=== PATIENT | female | born 1960 | race Caucasian/White ===

== ENCOUNTER 2018-05-14 10:44 | Emergency (ER) | payer MEDICAID ==
[~2018-05-14] VITALS: Ht 167.6 cm; Wt 67.0 kg
[2018-05-14 10:48] VITALS: BP 134/76; PULSE 74; RESP 20; Ht 167.6 cm; Wt 67.0 kg
--- NOTE | 2018-05-14 11:57 | ERD ---
ER Documentation Chief Complaint Chief Complaint Sent from MD for eval rash possible to shingles HPI 58-year-old female sent here by PCP to evaluate for shingles. Patient states that her daughter has recently diagnosed with shingles. Patient had a recurrent facial rash that usually erupts with stress. She currently has a facial rash, and her PCP want her to be seen in the ER to rule out shingles. Patient states that her facial lesion hong. She has not been diagnosed or treated for her facial lesions. Denies fever or chills. Denies itching. Denies drainage from the lesions. Denies burning or pain elsewhere. Patient reports history of chickenpox early in life. ROS All systems reviewed and are negative except as per history of present illness. Allergies Allergies: Coded Allergies: No Known Allergy (Unverified , 05/14/18) PMhx/Soc History of Surgery: No Hx Miscellaneous Medical Probl: Yes (dm) Hx Alcohol Use: No Hx Substance Use: No Hx Tobacco Use: No Smoking Status: Never smoker Physical Exam Vitals Vital Signs Date Temp Pulse Resp B/P (MAP) Pulse Ox O2 O2 Flow FiO2 Time Delivery Rate 05/14/18 98.1 74 20 134/76 99 10:48 (95) Physical Exam General: Well-developed, well-nourished, conscious and coherent, in no distress Skin: Warm and dry, good texture and turgor. Head: Normocephalic without evidence of trauma Eyes: Sclera and conjunctivae normal; pupils equal, round, and reactive to light; extraocular movements are intact Nose/Face: Multiple discrete erythematous papules on patient's bilateral cheeks and nose. No vesicular lesions, lesions cross the midline. Chest: Normal AP diameter. Good expansion without retractions. Nontender. Lungs are clear to auscultate bilaterally with good tidal volume Heart: Regular rate and rhythm. No murmur, rub, or gallops heard Extremities: Full range of motion. Good strength bilaterally. No erythema, ecchymosis, or edema. Peripheral pulses are intact. Sensation intact Neuro: Alert and oriented 4, GCS 15. Procedures/MDM 58-year-old female sent here by PCP for evaluation of possible shingles. Patient does have a facial lesion, however it looks more like rosacea rather than shingles. Given patient's advanced age, I advised her to get herpes zoster vaccination to prevent future shingles attack. I also advised patient to follow-up with her PCP for a dermatology referral to evaluate and treat her facial lesions. Patient appears well, stable for discharge and outpatient management. Medical decision making shared with patient and family. Education provided to patient and family. Patient and family expressed understanding of the plan. Medications on discharge: None Follow-up: Primary care provider in 2-3 days or return to ED if worse. Disclaimer: Inadvertent spelling and grammatical errors are likely due to EHR/dictation software use and do not reflect on the overall quality of patient care. Also, please note that the electronic time recorded on this note does not necessarily reflect the actual time of the patient encounter. Departure Diagnosis: Primary Impression: Rash Condition: Stable Patient Instructions: Self-Care for Skin Rashes [facility] Usted se phan hecho un examen mdico de control que le indica que no est en isaura condicin que requiera tratamiento urgente en el Departamento de Emergencia. Un estudio ms profundo y el tratamiento de [place] condicin pueden esperar sin ningn riesgo hasta que usted sea atendida/o en el consultorio de [place] mdico o isaura clnica. Es responsabilidad suya arreglar isaura waldemar para el seguimiento del juliet. MANEJO DE CONDICIONES NO URGENTES EN EL FUTURO 1) Si usted tiene un mdico de atencin primaria: Usted debera llamar a [place] mdico de atencin primaria antes de venir al departamento de emergencia. Despus de las horas de consultorio, [place] doctor o [place] asociado/a est disponible por telfono. El mdico o enfermero de riaz en el servicio telefnico puede asesorarle por naa medio para atender el problema, o juliet contrario se puede programar isaura waldemar. 2) Si usted no tiene un mdico de atencin primaria: Llame al mdico o clnica de referencia que aparece abajo darlene las horas de consultorio para hacer isaura waldemar para que le vean. CLINICAS: [facility] [phone] [facility] [phone] [facility] [phone] [place] [phone] [place] [address] [phone] [place] [phone] Additional Instructions: Llame al doctor nombrado abajo (Referral Sources) MAANA y jessica isaura WALDEMAR PARA DENTRO DE ISAURA SEMANA. Dgale a la secretaria que nosotros le instruimos hacer esta waldemar.Avise o llame si mont[place] condicin se empeora antes de la waldemar. BHAGRAV WOO NP May 14, 2018 11:57
[2018-05-27] MEDS ORDERED: METR45CR2 TOP (11:04)
[2018-05-27] MEDS ORDERED: PRED20TA PO (11:04)
== END 2018-05-14 12:20 | disposition home or self-care (01) ==
LOC: FTE 10:44
DX: R21 Rash and other nonspecific skin eruption (principal); R40.2412 Glasgow coma scale score 13-15, at arrival to emergency department
CPT/HCPCS: 99282

== ENCOUNTER 2018-06-29 07:54 | Emergency (ER) | payer MEDICAID ==
[~2018-06-29] VITALS: Wt 78.0 kg
[~2018-06-29 07:54] MED LIST: METR45CR2 TOP; PRED20TA PO
[2018-06-29] MEDS ORDERED: PHENAZOPYRIDINE 100 MG TAB PO ONE (11:00)
[2018-06-29] MEDS ORDERED: PHEN-538 PO (11:25)
[2018-06-29 11:45] VITALS: BP 141/73; PULSE 73; RESP 18
[2018-06-29] MEDS ORDERED: LISI-471 PO (11:48)
[2018-06-29] MEDS ORDERED: METF100010 PO (11:48)
--- NOTE | 2018-06-29 12:04 | ERD ---
ER Documentation Chief Complaint Chief Complaint LOWER ABD PAIN WITH DYSURIA HPI Patient is a 58-year-old female with diabetes who presents with pelvic pain. The patient said that for 3 weeks she has had pelvic pain and burning with urination. The patient has no fevers. The patient tried Tylenol and Advil. Upon review of old medical records this is the patient's third visit to the ER since 2019 for various complaints. She does not remember the name of her primary doctor. She has not called the primary doctor as of yet. ROS All systems reviewed and are negative except as per history of present illness. Medications Home Meds Active Scripts Phenazopyridine Hcl* (Pyridium*) 200 Mg Tab, 200 MG PO TID PRN for URINARY PAIN, #6 TAB Prov:BILL JOE MD 06/29/18 Reported Medications Lisinopril* (Lisinopril*) 20 Mg Tablet, 20 MG PO DAILY, #30 TAB 06/29/18 Metformin Hcl* (Metformin Hcl*) 1,000 Mg Tablet, 1000 MG PO WITH BREAKFAST DINNE, #60 TAB 06/29/18 Discontinued Scripts Prednisone* (Prednisone*) 20 Mg Tab, 40 MG PO DAILY for 4 Days, TAB Prov:CHRISTOPHER RODRIGUEZ MD 05/27/18 Metronidazole* (Metrocream*) 45 Gm Cream.gm., 1 APPLIC TOP BID for 7 Days, TUB Prov:CHRISTOPHER RODRIGUEZ MD 05/27/18 Allergies Allergies: Coded Allergies: No Known Allergy (Unverified , 06/29/18) PMhx/Soc Medical and Surgical Hx: pt denies Surgical Hx History of Surgery: No Anesthesia Reaction: No Hx Neurological Disorder: No Hx Respiratory Disorders: No Hx Cardiac Disorders: Yes (HTN) Hx Psychiatric Problems: No Hx Miscellaneous Medical Probl: Yes (dm) Hx Alcohol Use: No Hx Substance Use: No Hx Tobacco Use: No Smoking Status: Never smoker FmHx Family History: diabetes Physical Exam Vitals Vital Signs Date Temp Pulse Resp B/P (MAP) Pulse Ox O2 O2 Flow FiO2 Time Delivery Rate 06/29/18 73 18 141/73 99 Room Air 11:45 (95) 06/29/18 97.9 74 18 137/88 98 Room Air 10:49 (104) 06/29/18 98.1 79 18 171/71 99 07:57 (104) Physical Exam Const: No acute distress Head: Atraumatic Eyes: Normal Conjunctiva ENT: Normal External Ears, Nose and Mouth. Neck: Full range of motion. No meningismus. Resp: Clear to auscultation bilaterally Cardio: Regular rate and rhythm, no murmurs Abd: Soft, non tender, non distended. Normal bowel sounds Skin: No petechiae or rashes Back: No midline or flank tenderness Ext: No cyanosis, or edema Neur: Awake and alert Psych: Normal Mood and Affect Results 24 hrs Laboratory Tests Test 06/29/18 10:57 Bedside Urine pH (LAB) 7.0 Bedside Urine Protein (LAB) Negative Bedside Urine Glucose (UA) Negative Bedside Urine Ketones (LAB) 1+ Bedside Urine Blood Negative Bedside Urine Nitrite (LAB) Negative Bedside Urine Leukocyte Esterase (L Negative Current Medications Medications Dose Sig/Felicia Start Time Status Last (Trade) Ordered Route PRN Stop Time Admin Dose Reason Admin 200 mg ONCE ONCE 06/29/18 DC 06/29/18 Phenazopyridi PO 11:00 06/29/18 11:01 ne HCl 11:01 (Pyridium) Procedures/MDM Urine dip is negative for infection. Patient is a 58-year-old female who presents with dysuria. The patient has no sign of urinary infection. She is otherwise well-appearing. I do not believe the patient requires further workup or admission to the hospital at this time. The patient will be given a prescription for Pyridium for symptomatic relief. She was to follow-up with her primary doctor within 1 week. She can return for any worsening symptoms. Departure Diagnosis: Primary Impression: Dysuria Additional Impression: Abdominal pain Abdominal location: lower abdomen, unspecified Qualified Codes: R10.30 - Lower abdominal pain, unspecified Condition: Fair Patient Instructions: Dysuria Referrals: Your doctor Additional Instructions: Llame al doctor MAANA y jessica isaura WALDEMAR PARA DENTRO DE 1-2 METZ.Dgale a la secr etaria que nosotros le instruimos hacer esta waldemar.Avise o llame si [place] condicin se empeora antes de la waldemar. Regresa aqui si peor o no mejor. BILL JOE MD Jun 29, 2018 12:04
== END 2018-06-29 11:45 | disposition home or self-care (01) ==
LOC: E/R 07:54
DX: R30.0 Dysuria (principal); E11.9 Type 2 diabetes mellitus without complications; I10 Essential (primary) hypertension; Z79.84 Long term (current) use of oral hypoglycemic drugs
CPT/HCPCS: 81003; Z7502; Z7610; 99282

== ENCOUNTER 2018-07-20 17:52 | Emergency (ER) | payer MEDICAID ==
[~2018-07-20] VITALS: Ht 160 cm; Wt 64.0 kg
[~2018-07-20 17:52] MED LIST changes: +LISI-471 PO; +METF100010 PO; -METR45CR2 TOP; +PHEN-538 PO; -PRED20TA PO
[2018-07-20 17:59] VITALS: Ht 160 cm; Wt 64.0 kg
[2018-07-20] MEDS ORDERED: DIPHTH/TET/ACEL PERTUSS (ADULT) 0.5 ML VIAL IM* ONE (21:30)
[2018-07-20] MEDS ORDERED: HYDROCODONE/APAP (10/325) TAB PO ONE (21:30)
[2018-07-20] MEDS ORDERED: SILVER SULFADIAZINE 1% 25 GM CR TOP ONE (21:30)
--- NOTE | 2018-07-20 21:49 | ERD ---
ER Documentation Chief Complaint Chief Complaint thermal burn yesterday to suprapubic area HPI This is a 58-year-old female who presents here to emergency department with complaints of thermal burn that happened yesterday. Patient stated that she was holding her hot coffee when this accidentally fell to her suprapubic/vaginal area. Stated that she is diabetic. LMP: Denies headache, head injury, loss of consciousness, dizziness, neck pain, neck stiffness, throat pain, difficulty swallowing, difficulty breathing lying flat, shoulder pain, chest pain, back pain, abdominal pain, nausea, vomiting, constipation, diarrhea, urinary symptoms, or possibility being , loss of bowel and bladder control, trauma, injury, falls, difficulty walking due to pain, numbness or tingling sensation, calf pain, recent travel, recent major surgery in the last 3 weeks, calf pain, recent long travel, recent exposure to any illness, recent antibiotic use in the last 3 months, fever, chills, seizures. Past medical history: Surgical history: Social: Denies smoking, use of alcoholic beverages, use of illegal drugs. ROS All systems reviewed and are negative except as per history of present illness. Medications Home Meds Active Scripts Silver Sulfadiazine* (Silvadene*) 1% - 20 Gm Cream.gm., 1 APPLIC TOP DAILY for 4 Days, #1 TUB Prov:TOM WEBSTER F 07/20/18 Hydrocodone/Acetaminophen (Dequincy 5-325 Tablet) 1 Each Tablet, 1 TAB PO Q6H PRN for PAIN, #4 TAB Prov:PASILATOM FRENCH F 07/20/18 Cephalexin* (Keflex*) 500 Mg Capsule, 500 MG PO TID for 7 Days, CAP Prov:PASILABANTOM F 07/20/18 Phenazopyridine Hcl* (Pyridium*) 200 Mg Tab, 200 MG PO TID PRN for URINARY PAIN, #6 TAB Prov:BILL JOE MD 06/29/18 Reported Medications Lisinopril* (Lisinopril*) 20 Mg Tablet, 20 MG PO DAILY, #30 TAB 06/29/18 Metformin Hcl* (Metformin Hcl*) 1,000 Mg Tablet, 1000 MG PO WITH BREAKFAST DINNE, #60 TAB 06/29/18 Allergies Allergies: Coded Allergies: No Known Allergy (Unverified , 06/29/18) PMhx/Soc Medical and Surgical Hx: pt denies Surgical Hx History of Surgery: No Anesthesia Reaction: No Hx Neurological Disorder: No Hx Respiratory Disorders: No Hx Cardiac Disorders: Yes (HTN) Hx Psychiatric Problems: No Hx Miscellaneous Medical Probl: Yes (DM) Hx Alcohol Use: No Hx Substance Use: No Hx Tobacco Use: No Smoking Status: Never smoker Physical Exam Vitals Physical Exam Const: No acute distress Head: Atraumatic Eyes: Normal Conjunctiva ENT: Normal External Ears, Nose and Mouth. Neck: Full range of motion. No meningismus. Resp: Clear to auscultation bilaterally. Respirations even and unlabored. No retractions noted. No accessory muscle use in breathing. Cardio: Regular rate and rhythm, no murmurs Abd: Soft, non tender, non distended. Normal bowel sounds Skin: No petechiae or rashes. Examined with female psych therapist, RN. Right side of her abdomen has a circular lesion that has blister in it measuring approximately 2.5 cm in diameter. Sensation is intact. No induration. No signs of deep space infection. No bleeding. No discharge. No swelling. No signs of inguinal hernia. Back: No midline or flank tenderness Ext: No cyanosis, or edema. No neurovascular deficit. Ambulatory with steady gait. Neur: Awake and alert. No neurological deficits. Psych: Normal Mood and Affect Results 24 hrs Current Medications Medications Dose Sig/Felicia Start Time Status Last (Trade) Ordered Route PRN Stop Time Admin Dose Reason Admin Diphtheria/ 0.5 ml ONCE ONCE 07/20/18 DC 07/20/18 Tetanus/Acell IM* 21:30 21:34 Pertussis 07/20/18 21:31 (Adacel) Silver 1 applic ONCE ONCE 07/20/18 DC 07/20/18 Sulfadiazine TOP 21:30 21:34 (Thermazene 07/20/18 21:31 1% 25 Gm) 1 tab ONCE ONCE 07/20/18 DC 07/20/18 Acetaminophen PO 21:30 21:33 / 07/20/18 21:31 Hydrocodone Bitart (Dequincy ()) Procedures/MDM Diagnostic tests: Clinical exam. Treatment: Adacel IM. Silvadene cream. Dressing was applied by EMT. Re-evaluation: Denies pain. No bleeding. No neurovascular deficit. No neurological deficit. Stated that she feels much better at this time and that she is comfortable going home. Differential diagnosis I have low suspicion for deep space infection, necrotizing fasciitis, third- degree hong, eschar formation, pressure sore, sepsis Case was discussed with my supervising physician, Dr. Mace who agreed with my medical decision making that patient is appropriate for outpatient.Rony Final diagnosis: Second-degree burn. Prescription: Keflex. Silvadene cream. Dequincy. Follow-up with PCP in the next 24-48 hours. Follow-up with burn center in the next 24-48 hours. Resources was also provided. Come back here in the emergency department for any new symptoms or any worsening symptoms. All questions and concerns were answered. Patient and family members verbalized understanding and agreed with plan of care. Hemodynamically stable on discharge. Departure Diagnosis: Primary Impression: Second degree burn Condition: Stable Additional Instructions: Follow-up with PCP in the next 24-48 hours. Follow-up with burn center in the next 24-48 hours. Resources was also provided. Come back here in the emergency department for any new symptoms or any worsening symptoms. TOM WEBSTER Jul 20, 2018 21:49
[2018-07-20] MEDS ORDERED: HYDR-4011 PO (21:50)
[2018-07-20] MEDS ORDERED: SILV20CR12 TOP (21:50)
[2018-07-20] MEDS ORDERED: CEPH-443 PO (21:50)
[2018-07-20 22:05] VITALS: BP 138/78; PULSE 72
== END 2018-07-20 22:06 | disposition home or self-care (01) ==
LOC: FTE 17:52
DX: T21.22XA Burn of second degree of abdominal wall, initial encounter (principal); I10 Essential (primary) hypertension; E11.9 Type 2 diabetes mellitus without complications; X10.0XXA Contact with hot drinks, initial encounter; Y92.9 Unspecified place or not applicable; Z23 Encounter for immunization; Z79.84 Long term (current) use of oral hypoglycemic drugs
CPT/HCPCS: 16020; 90471; 90715; Z7502; Z7610